=== PATIENT | male | born 1950 | race Two or more races ===

== ENCOUNTER 2018-05-18 12:00 | Outpatient (CLI) | payer OTHER | END 2018-05-18 12:08 | disposition home or self-care (01) | LOC: SONOGRAMA 12:00 | DX: E04.2 Nontoxic multinodular goiter (principal) ==

== ENCOUNTER 2021-05-26 05:38 | Day surgery (SDC) | payer OTHER ==
[~2021-05-26 05:38] MED LIST: ADULT LOW DOSE81 M1 PO; CRESTOR20 MG PO; HYDROCHLOROTH12.5 MG PO; NORVASC5 MG PO; RAPAFLO8 MG PO
[2021-05-26] MEDS ORDERED: BACTRIM DS TAB1 EACH PO (10:24)
[2021-05-26] MEDS ORDERED: PYRIDIUM DS200 MG PO (10:24)
[2021-05-26] MEDS ORDERED: MELOXICAM7.5 MG PO (10:25)
== END 2021-05-26 16:05 | disposition home or self-care (01) ==
LOC: CIR.AMB 05:38
PROVIDERS: ATTEND Surgery
DX: C67.1 Malignant neoplasm of dome of bladder (principal); C67.3 Malignant neoplasm of anterior wall of bladder; Z20.822 Contact with and (suspected) exposure to COVID-19
CPT/HCPCS: 52240; 96374; J3490; J9030

== ENCOUNTER 2022-11-22 10:06 | Outpatient (CLI) | payer OTHER ==
[~2022-11-22 10:06] MED LIST changes: +BACTRIM DS TAB1 EACH PO; +MELOXICAM7.5 MG PO; +PYRIDIUM DS200 MG PO
== END 2022-11-22 10:08 | disposition home or self-care (01) ==
LOC: SONOGRAMA 10:06
PROVIDERS: ATTEND Pathology Anatomic Pathology
DX: D34 Benign neoplasm of thyroid gland (principal); E04.9 Nontoxic goiter, unspecified; E04.2 Nontoxic multinodular goiter